=== PATIENT | male | born 2005 | race Caucasian/White ===

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

== ENCOUNTER 2023-12-03 09:27 | Emergency (ER) | payer OTHER, SELFPAY ==
[2023-12-03 09:29] VITALS: BP 144/87; PULSE 66; RESP 14; TEMP 36.6; O2SAT 98; BMI 35.4
--- NOTE | 2023-12-03 10:04 | EDS_ITS ---
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 Wound is approximately 3.5 cm in length by 0.5 cm wide into the subcutaneous tissue. Bleeding is controlled with a dressing. He is unsure of his last tetanus. Denies numbness & tingling. Has full range of m otion of extremity. He denies fever, chills. Denies recent surgeries or hospitalizations. Tetanus Immunization: Unknown Prior similar symptoms: No Recent Illness/Hospitalization: No PFSH <Padmaja Lemos RN - Last Filed: 12/03/23 10:23> [facility] Medical History Allergies Impetigo Left wrist sprain Neoplasm of skin of forearm Neoplasm of skin of upper arm Nephritis Right wrist fracture Spleen injury Home Medications loratadine 10 mg disintegrating tablet 10 mg PO DAILY 07/07/20 [History Last Taken Unknown] Allergy/AdvReac Type Severity Reaction Status Date / Time azithromycin [From Zithromax] Allergy Vomiting Verified 12/03/23 09:28 morphine Allergy Angioedema Verified 12/03/23 09:28 Iodinated Contrast Media AdvReac Other Verified 12/03/23 09:28 [CONTRASTS] Family History Mother Thyroid disorder Grandfather Seizures Head injury Grandmother Severe allergy Hypertension High cholesterol Grandfather Prostate cancer Surgical History History of elbow surgery Social History household members: family housing: house number of children: 0 current occupational status: employed pets and animals: Yes leisure activities: sports history of recent travel: No sexually active: Yes Smoking Status: Never smoker alcohol intake: never substance use type: does not use seatbelt use: always do you feel safe at home: Yes additional social history: Does Not Use Aspirin Does Not Use Ibuprofen ROS <Padmaja Lemos RN - Last Filed: 12/03/23 10:23> ROS ED Constitutional Constitutional ED: Denies chills, fever(s) or sweats Eyes Eyes: Denies change in vision ENT ENT ED: Denies rhinorrhea or sore throat Cardiovascular Cardiovascular: Denies chest pain or palpitations Respiratory/Chest Respiratory/Chest: Denies cough, dyspnea or dyspnea on exertion Gastrointestinal Gastrointestinal: Denies abdominal pain, nausea or vomiting Genitourinary Genitourinary ED: Denies dysuria, hematuria or urinary frequency Musculoskeletal Musculoskeletal: Denies arthralgias or myalgias Integumentary Reports other; Denies rash Neurologic Neurologic: Denies headache(s), paresthesias or weakness Hematologic/Lymphatic Hematologic/Lymphatic: Denies easy bleeding or easy bruising EXAM <Padmaja Lemos RN - Last Filed: 12/03/23 10:23> Physical Exam Narrative Exam Narrative: Patient is awake, alert, cooperative, good historian. Const Vital Signs: 12/03/23 09:29 12/03/23 10:35 Temperature 98 F 98 F Temperature Source Temporal Pulse Rate 66 67 Respiratory Rate 14 16 Blood Pressure 144/87 H 132/81 H Blood Pressure Mean 106 98 Pulse Ox 98 97 Oxygen Delivery Method Room Air Positive well nourished and well developed General Appearance ED: well developed and NAD HEENT atraumatic Eyes PERRL Neck full ROM Chest Wall inspection of chest normal and palpation of chest normal Resp normal respiratory effort and clear to auscultation bilaterally Auscultation: Negative for rales, rhonchi or wheezes Cardio regular rhythm and S1 normal heart sound GI normal to inspection, nondistended, normoactive bowel sounds and non-tender Palpation: soft Back/Spine normal to inspection and no thoracic nor lumbar tenderness Extremity full ROM Extremity Narrative: Tenderness to lower right thigh General Extremety ED: Yes tenderness; Negative for edema General Extremity: Negative for edema Neuro oriented x3 Sensorium / Orientation: alert Motor Exam: strength 5/5 throughout Psych mental status grossly normal Skin skin turgor normal Skin Narrative: 3.5 cm x 0.5 cm laceration down to the subcutaneous tissue to lower right thigh just anterior to to the patella. Bleeding controlled with dressing. Wounds: wounds noted <Dr. Vidal Shane MD - Last Filed: 12/03/23 10:42> Physical Exam Const Vital Signs: 12/03/23 09:29 12/03/23 10:35 Temperature 98 F 98 F Temperature Source Temporal Pulse Rate 66 67 Respiratory Rate 14 16 Blood Pressure 144/87 H 132/81 H Blood Pressure Mean 106 98 Pulse Ox 98 97 Oxygen Delivery Method Room Air MDM <Padmaja Lemos RN - Last Filed: 12/03/23 10:23> [facility] Narrative Medical decision making narrative: Tetanus will be updated. Wound will require suturing by Dr. Shane. I have personally performed a face to face assessment of the patient and have reviewed the PRIYANKA Note. I performed a substantive portion of the visit including all aspects of the following. My guillaume findings include: History is remarkable for patient cutting a pipe with knife. Patient seen laceration distal anterior right thigh. Patient denies paresthesia, anesthesia medics. Tetanus is not up-to-date. This occurred at work. Exam is remarkable for a linear laceration above the patella. The extensor mechanism is intact. The laceration is down to subcutaneous tissue. There is no visualization of the quadricep tendon. There is no foreign body noted. Medical Decision Making patient will require repair. Patient's wound was anesthetized with 1% lidocaine without epinephrine by local infiltration. Wound was irrigated with normal saline standard amount. The wound was cleansed with surgical lungs. Using sterile 0 Ethilon a running stitch was placed with good cosmesis and approximation. Total length of laceration 3.5 cm Other additions or changes: Patient discharged home with appropriate home-going instructions. History & Record Review Discussion w/independent historian: Patient and Family Management Discussion w/another healthcare provider: Other Treatment and Re-Evaluation Narrative: Wound was repaired by Dr. Shane. Bacitracin and dressing applied by nursing staff. Patient informed of wound care. He may return to work today. He will follow-up with corporate care for suture removal in 14 days. He is instructed to contact corporate care or return to ED for fever, increased redness, or drainage. Patient agreeable with plan. <Dr. Vidal Shane MD - Last Filed: 12/03/23 10:42> [facility] MDM Narrative Medical decision making narrative: I have personally performed a face to face assessment of the patient and have reviewed the PRIYANKA Note. I performed a substantive portion of the visit including all aspects of the following. My guillaume findings include: History is remarkable for patient cutting a pipe with knife. Patient seen laceration distal anterior right thigh. Patient denies paresthesia, anesthesia medics. Tetanus is not up-to-date. This occurred at work. Exam is remarkable for a linear laceration above the patella. The extensor mechanism is intact. The laceration is down to subcutaneous tissue. There is no visualization of the quadricep tendon. There is no foreign body noted. Medical Decision Making patient will require repair. Patient's wound was anesthetized with 1% lidocaine without epinephrine by local infiltration. Wound was irrigated with normal saline standard amount. The wound was cleansed with surgical lungs. Using sterile 0 Ethilon a running stitch was placed with good cosmesis and approximation. Total length of laceration 3.5 cm Other additions or changes: Patient discharged home with appropriate home-going instructions. Discharge Plan Triage Chief Complaint: Laceration ED Provider: Vidal Shane Dx/Rx/DC Orders Clinical Impression: Laceration of right thigh Instructions: ED Laceration Extremity Prescriptions: No Action loratadine 10 MG tablet,disintegrating 10 mg PO DAILY Stand Alone Forms: ED Work / School Excuse Primary Care Provider: Tianna Stephenson Referrals: [facility] [Group of Physicians] - Tianna Stephenson DO [Primary Care Provider] - Activity Restrictions/Additional Instructions: Keep wound clean and dry. May shower and wash with soap and water. Place bacitracin over wound twice a day followed by a dressing. Sutures should be removed in 14 days. You may see your corporate care for suture removal or return to the ED. Follow-up with corporate care or return to ED for increasing redness to the wound, drainage, or fever. Disposition Disposition: Home, Self Care Discharge Date/Time: 12/03/23 10:36
[2023-12-03] MEDS: Diphth,Pertuss(Acell),Tet Vac 0.5 ML Vial IM (10:07)
[2023-12-03] MEDS: Lidocaine 1% (20 ml mdv) 20 ML Vial INFILT (10:07)
[2023-12-03] MEDS: BACITRACIN 15 GM Tube 1 APPLIC TOPICAL (10:08)
[2023-12-03 10:35] VITALS: BP 132/81; PULSE 67; RESP 16; TEMP 36.6; O2SAT 97
--- NOTE | 2023-12-03 10:36 | ED.RN ---
patient's employer reports no drug test needed.
== END 2023-12-03 10:36 | disposition home or self-care (01) ==
PROVIDERS: Emergency Provider Emergency Medicine; PCP Family Medicine; Visit Provider Emergency Medicine
DX: S71.111A Laceration without foreign body, right thigh, initial encounter (principal); W27.8XXA Contact with other nonpowered hand tool, initial encounter; Z23 Encounter for immunization
CPT/HCPCS: 12002; 90471; 90715; 99283

== ENCOUNTER 2024-10-14 12:39 | Emergency (ER) | payer OTHER, SELFPAY ==
[2024-10-14 12:39] VITALS: BP 136/72; PULSE 83; RESP 16; TEMP 36.8; O2SAT 98; BMI 32.9
[2024-10-14 12:55] VITALS: BP 120/64; BP 121/75; BP 126/64; PULSE 77; PULSE 78; PULSE 96
[2024-10-14 12:59] VITALS: BP 126/64; PULSE 84; RESP 18; TEMP 36.3; O2SAT 99
[2024-10-14 13:01] VITALS: O2SAT 96
--- NOTE | 2024-10-14 13:55 | EKG12_ITS ---
Test Reason : SOB/CP Blood Pressure : */* mmHG Vent. Rate : 74 BPM Atrial Rate : 74 BPM P-R Int : 146 ms QRS Dur : 88 ms QT Int : 362 ms P-R-T Axes : 29 41 15 degrees QTcB Int : 401 ms Normal sinus rhythm Normal ECG Confirmed by EAMON NGUYEN, ALESSANDRO ([id number]), editor school photograph REUBEN HANSEN ([id number]) on 10/16/2024 12:56:55 PM Referred By: Confirmed By: ALESSANDRO KNUTSON MD
--- NOTE | 2024-10-14 14:00 | RAD_ITS ---
PROCEDURE: CHEST 1 VIEW (PORTABLE) REASON FOR EXAM: Chest pain. TECHNIQUE: Frontal view of the chest. COMPARISON: None provided. FINDINGS: The heart size is normal. The lungs are clear. No pleural effusion or pneumothorax is seen. No significant osseous change is evident. RAD/Chest 1 View (Portable) IMPRESSION: NEGATIVE CHEST. Reading Location: [id number]
[2024-10-14 14:10] LABS: Absolute Lymphocyte Count 1.99 X10^3/uL (0.83-4.51); Absolute Neutrophil Count 3.1 X10^3/uL (2.0-7.7); Basophil# 0.03 X10^3/uL; Basophil% 0.5 % (0-1); Eosinophil# 0.27 X10^3/uL; Eosinophils% 4.5 % (0-5); Hematocrit 43.8 % (40-54); Hemoglobin 14.7 g/dL (13.0-16.5); Lymphocyte # 1.99 X10^3/ul (0.83-4.51); Lymphocyte % 33.3 % (19-41); Mean Corp Hgb Conc 33.6 g/dL (32-36); Mean Corpuscular Hgb 29.6 pg (27.0-32.0); Mean Corpuscular Volume 88.3 fL (80-94); Mean Platelet Vol. 10.3 fl (6.2-12.0); Monocyte# 0.55 X10^3/uL; Monocyte% 9.2 % (0-10); NRBC Flagged by Analyzer 0 % (0-5); Neutrophil # 3.12 X10^3/uL (2.7-7.7); Neutrophil % 52.3 % (47-70); Platelet Count 163 K/mm3 (150-450); RBC Distribution Width CV 12.3 % (11.6-14.6); RBC Distribution Width SD 39.7 fl (35.1-43.9); Red Blood Count 4.96 M/mm3 (4.6-6.2)
[2024-10-14 14:25] LABS: Anion Gap 3 (5-15); BUN 10 mg/dL (7-18); BUN/Creat Ratio 10.1 RATIO (10-20); Calcium,Total 9.2 mg/dL (8.5-10.1); Chloride 105 mmol/L (98-107); Creatinine, Serum 0.99 mg/dL (0.70-1.30); EST Glomerular Filtration Rate 101 mL/min (>60); Est Glom Filt Rate - Afr Amer 123 mL/min (>60); Estimated Creatinine Clearance 146.99 ml/min; Glucose 84 mg/dL (74-106); Potassium 3.7 mmol/L (3.5-5.1); Sodium Level 137 mmol/L (136-145)
--- NOTE | 2024-10-14 14:30 | EX.ED.DYSGE1 ---
HPI History of Present Illness Chief Complaint: Shortness of Breath Informant: patient and parent Narrative Narrative: 19-year-old male presenting to the emergency room with a chief complaint of chest pain shortness of breath. Patient states on Saturday evening into Saturday he developed body aches and diarrhea. He states the diarrhea resolved today. However when he woke this morning he felt a burning indigestion-like sensation in his upper chest and throat. He states that when he gets up and walks around he feels short of breath when he takes a deep breath feels a discomfort in the upper chest. He denies any significant cough. Its gotten better throughout the day but is still present. He denies any fever or rashes. No constant pain. As long as he is at rest he is feeling fairly normal. 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 Right wrist fracture Spleen injury Nephritis Allergies Left wrist sprain Home Medications ?Medication ?Instructions ?Recorded ?Last Taken ?Type acetaminophen 500 mg tablet 1,000 mg PO Q6H PRN 07/17/24 Unknown History loratadine 10 mg disintegrating 10 mg PO DAILY PRN ALLERGIES 07/17/24 Unknown History tablet ondansetron HCl 8 mg tablet 8 mg PO Q8H PRN nausea and 07/17/24 Unknown Rx vomiting #14 tabs semaglutide 0.25 mg or 0.5 mg (2 0.25 mg subcut QWEEK 10/14/24 Unknown History mg/3 mL) subcutaneous pen injector Allergy/AdvReac Type Severity Reaction Status Date / Time azithromycin (From Zithromax) Allergy Vomiting Verified 10/14/24 12:42 morphine Allergy Angioedema Verified 10/14/24 12:42 Iodinated Contrast Media AdvReac Other Verified 10/14/24 12:42 (CONTRASTS) Family History Mother Thyroid disorder Grandfather Seizures Head injury Grandmother Severe allergy Hypertension High cholesterol Grandfather Prostate cancer Surgical History History of elbow surgery Social History household members: family housing: house number of children: 0 current occupational status: employed pets and animals: Yes leisure activities: sports history of recent travel: No sexually active: Yes Smoking Status: Never smoker alcohol intake: never substance use type: does not use seatbelt use: always do you feel safe at home: Yes additional social history: Does Not Use Aspirin Does Not Use Ibuprofen ROS ROS ED Constitutional Constitutional ED: Denies chills, fever(s) or weight loss Eyes Eyes: Denies change in vision or diplopia ENT ENT ED: Denies ear pain, rhinorrhea or sore throat Cardiovascular Cardiovascular: Reports chest pain; Denies orthopnea, palpitations or racing heartbeat Respiratory/Chest Respiratory/Chest: Reports dyspnea; Denies cough or orthopnea Gastrointestinal Gastrointestinal: Reports diarrhea and other Details: See history of present illness ; Denies abdominal pain, nausea or vomiting Genitourinary Genitourinary ED: Denies dysuria, hematuria or urinary frequency Musculoskeletal Musculoskeletal: Reports myalgias; Denies arthralgias Integumentary Denies abscess or rash Neurologic Neurologic: Denies headache(s) or weakness Psychiatric Psychiatric: Denies anxiety, depression, suicidal ideation or suicidal thoughts Endocrine Endocrinology: Denies polydipsia, polyphagia or polyuria Allergic/Immunologic Allergic/Immunologic ED: Denies mouth swelling, tongue swelling or urticaria EXAM Physical Exam Const Vital Signs: 10/14/24 12:39 10/14/24 12:55 10/14/24 12:59 Temperature 98.2 F 97.4 F L Temperature Source Oral Oral Pulse Rate 83 84 Pulse Rate [Lying] 78 Pulse Rate [Sitting (for 1 minute prior to obtaining)] 77 Pulse Rate [Standing (for 1 minute prior to obtaining)] 96 Respiratory Rate 16 18 Respiratory Effort Respiratory Depth Respiratory Pattern Blood Pressure 136/72 H 126/64 H Blood Pressure [Lying] 120/64 Blood Pressure [Sitting (for 1 minute prior to obtaining)] 121/75 H Blood Pressure [Standing (for 1 minute prior to obtaining)] 126/64 H Blood Pressure Mean 93 84 Blood Pressure Mean [Lying] 82 Blood Pressure Mean [Sitting (for 1 minute prior to obtaining)] 90 Blood Pressure Mean [Standing (for 1 minute prior to obtaining)] 84 Pulse Ox 98 99 Oxygen Delivery Method Room Air Room Air 10/14/24 13:01 10/14/24 14:39 Temperature Temperature Source Pulse Rate 70 Pulse Rate [Lying] Pulse Rate [Sitting (for 1 minute prior to obtaining)] Pulse Rate [Standing (for 1 minute prior to obtaining)] Respiratory Rate 15 Respiratory Effort Normal Non-Labored Respiratory Depth Normal Respiratory Pattern Normal Blood Pressure 124/60 H Blood Pressure [Lying] Blood Pressure [Sitting (for 1 minute prior to obtaining)] Blood Pressure [Standing (for 1 minute prior to obtaining)] Blood Pressure Mean 81 Blood Pressure Mean [Lying] Blood Pressure Mean [Sitting (for 1 minute prior to obtaining)] Blood Pressure Mean [Standing (for 1 minute prior to obtaining)] Pulse Ox 97 Oxygen Delivery Method Room Air Room Air Positive well nourished and well developed General Appearance ED: well developed HEENT Reports normocephalic, head/scalp atraumatic and moist mucous membranes Eyes PERRL and EOMs intact bilaterally Neck no lymphadenopathy, supple and no JVD Resp normal respiratory effort and clear to auscultation bilaterally Cardio regular rate, regular rhythm and no murmurs GI normal to inspection, nondistended, normoactive bowel sounds and non-tender Palpation: soft Back/Spine no CVA tenderness and normal ROM Extremity normal to inspection General Extremety ED: Negative for edema General Extremity: Negative for edema Neuro oriented x3 and CN's II-XII intact bilaterally Sensorium / Orientation: alert Motor Exam: strength 5/5 throughout Psych mental status grossly normal Mood & Affect: Negative for depressed or tearful Skin no rashes or lesions noted and no wounds MDM MDM MDM Narrative Medical decision making narrative: Differential diagnosis includes but not limited to GERD aspiration viral myocarditis acute coronary syndrome pulmonary embolism pneumonia pneumothorax pleural effusion pleurisy costochondritis My independent interpretation the chest x-ray is no acute process. EKG shows a normal sinus rhythm with a ventricular rate of [address] segments. White count is 6 hemoglobin 14.7 platelet count of 163. BMP is within normal limits. D-dimer is less than 0.27 troponin is 10. Clinically I wonder if the patient may have aspirated some during his reflux this morning. I am not seeing definitive emergent reason to hospitalize for further investigation. Patient was updated with the above findings. Unguinal recommend that he take his home Nexium as needed. If he has continued reflux symptoms would recommend PCP follow-up with possible referral for EGD. He understands return instructions is comfortable with History & Record Review Discussion w/independent historian: Patient and Family Lab Data Attestation: I reviewed the patient's lab results. Labs: Laboratory Results - last 24 hr 10/14/24 10/14/24 13:50 15:15 WBC 6.0 RBC 4.96 Hgb 14.7 Hct 43.8 MCV 88.3 MCH 29.6 MCHC 33.6 RDW Std Deviation 39.7 RDW Coeff of Monae 12.3 Plt Count 163 MPV 10.3 Immature Gran % (Auto) 0.200 Neut % (Auto) 52.3 Lymph % (Auto) 33.3 [place] % (Auto) 9.2 Eos % (Auto) 4.5 Baso % (Auto) 0.5 Absolute Neuts (auto) 3.1 Absolute Lymphs (auto) 1.99 Nucleated RBC % 0 D-Dimer Quant (PE/DVT) < 0.27 L Sodium 137 Potassium 3.7 Chloride 105 Carbon Dioxide 30.0 Anion Gap 3 L BUN 10 Creatinine 0.99 Estim Creat Clear Calc 146.99 Est GFR (MDRD) Af Amer 123 Est GFR (MDRD) Non-Af 101 BUN/Creatinine Ratio 10.1 Glucose 84 Calcium 9.2 Troponin I High Sens 10 Radiography Diagnostic Testing: Clinical Impression(s) from Imaging Studies Chest X-Ray 10/14/24 14:00 IMPRESSION: NEGATIVE CHEST. Reading Location: [address] Discharge Plan Triage Chief Complaint: Shortness of Breath ED Provider: De Hinds Dx/Rx/DC Orders Clinical Impression: Chest pain, GERD (gastroesophageal reflux disease) Instructions: GERD Dc, ED Chest Pain, Noncardiac Prescriptions: No Action acetaminophen 500 mg tablet 1,000 mg PO Q6H PRN ondansetron HCl 8 mg tablet 8 mg PO Q8H PRN (Reason: nausea and vomiting) Qty: 14 0RF loratadine 10 mg tablet,disintegrating 10 mg PO DAILY PRN (Reason: ALLERGIES) semaglutide 0.25 mg or 0.5 mg (2 mg/3 mL) pen injector 0.25 mg subcut QWEEK Rx Instructions: for 4 weeks Primary Care Provider: Tianna Stephenson Referrals: Tianna Stephenson DO [Primary Care Provider] - 10-14 Days if not better Print Language: Amharic Disposition Disposition: Home, Self Care
[2024-10-14 14:39] VITALS: BP 124/60; PULSE 70; RESP 15; O2SAT 97
[2024-10-14 15:16] LABS: Troponin-I HS 10 pg/mL (3.0-78.0)
[2024-10-14 15:45] LABS: D-Dimer Quantitative (DVT/PE) < 0.27 FEU/ug/m (0.27-0.49)
[2024-10-14 16:27] VITALS: BP 127/88; PULSE 79; RESP 15; TEMP 36.3; O2SAT 98
== END 2024-10-14 16:30 | disposition home or self-care (01) ==
PROVIDERS: Emergency Provider Emergency Medicine; PCP Family Medicine; Visit Provider Emergency Medicine
DX: K21.9 Gastro-esophageal reflux disease without esophagitis (principal); R07.9 Chest pain, unspecified; R06.02 Shortness of breath; R19.7 Diarrhea, unspecified; Z79.85 Long-term (current) use of injectable non-insulin antidiabetic drugs; Z79.899 Other long term (current) drug therapy
CPT/HCPCS: 71045; 80048; 84484; 85025; 85379; 93005; 99284; A4216

== ENCOUNTER → 2025-02-10 | Outpatient (CLI) | payer OTHER, SELFPAY ==
--- NOTE | 2025-02-10 12:37 | MRI_ITS ---
PROCEDURE: UPPER EXT JOINT ONLY(ROUTINE) 02/10/2025 REASON FOR EXAM: INCREASED PAIN, DECREASED STRENGTH AND ROM TECHNIQUE: MRI of the right upper Extremity. Multiplanar and multisequence images were obtained without IV contrast administration. COMPARISON: COMPARISON : Radiographs on 01/04/2025. 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 Mild elbow joint effusion. Degenerative fibrocystic changes of the capitellum. The visualized osseous structures demonstrate normal signal characteristics. There is no evidence of fluid collection. Mild tendinosis of the ulnar insertional fibers of the triceps tendon. Mild tendinosis of the origin fibers of the common flexor tendon. Mild tendinosis of the origin fibers of the common extensor tendon. The remaining tendons are unremarkable in appearance. MRI/Upper Ext Joint Only(Routine) IMPRESSION: 1. 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 2. Mild elbow joint effusion. 3. Degenerative fibrocystic changes of the capitellum. 4. Mild tendinosis of the ulnar insertional fibers of the triceps tendon. Reading Location: [facility]
== END | disposition home or self-care (01) ==
LOC: OPMRI 12:25
PROVIDERS: PCP Family Medicine; Referring Provider Nurse Practitioner Family; Visit Provider Nurse Practitioner Family
DX: M77.11 Lateral epicondylitis, right elbow (principal); M67.921 Unspecified disorder of synovium and tendon, right upper arm
CPT/HCPCS: 73221